=== PATIENT | male | born 1980 | race Two or more races ===

== ENCOUNTER 2017-11-16 07:58 | Emergency (ER) | payer SELFPAY ==
[~2017-11-16] VITALS: Ht 177.8 cm; Wt 88.5 kg
[2017-11-16 08:04] VITALS: BP 134/75
== END 2017-11-16 08:27 | disposition home or self-care (01) ==
LOC: ER 08:00
DX: L03.011 Cellulitis of right finger (principal)
CPT/HCPCS: 99283; A4606; Z7610